=== PATIENT | female | born 1985 | race Caucasian/White ===

== ENCOUNTER 2017-12-26 09:31 | Emergency (ER) | payer OTHER ==
[~2017-12-26] VITALS: Ht 160 cm; Wt 83.5 kg
[2017-12-26 10:18] LABS: BILIRUBIN,URINE NEGATIVE (NEGATIVE); CLARITY,URINE CLEAR (CLEAR); COLOR,URINE YELLOW (YELLOW); KETONES,URINE NEGATIVE (NEGATIVE); LEUKOCYTE ESTERASE ,URINE NEGATIVE (NEGATIVE); NITRITE,URINE NEGATIVE (NEGATIVE); PROTEIN,URINE DIPSTICK NEGATIVE (NEGATIVE); URINE UROBILINOGEN 0.2 mg/dL (0.2 - 1)
[2017-12-26 10:19] LABS: PREGNANCY TEST, URINE NEGATIVE (NEGATIVE)
[2017-12-26 10:22] LABS: BACTERIA,URINE FEW /HPF; EPITHELIAL CELLS,URINE MODERATE /LPF; RBC,URINE 0-5 /HPF (0-5); WBC,URINE (MAN) 0-5 /HPF (0-5)
[2017-12-26 11:14] VITALS: BP 121/73
--- NOTE | 2017-12-26 11:15 | Diagnostic Imaging Report ---
Pelvis CPT code: 61536 Indication: Fall Technique: AP view of the pelvis obtained. Findings: No abnormalities of the pubic symphysis or sacroiliac joints. No evidence of fracture, dislocation, or focal osseous lesion. Intrauterine device is present just to the right of midline. Visualized bowel gas pattern is unremarkable. IMPRESSION: No acute traumatic pathology. Signed by: Dr. Madina Niño MD on 12/26/2017 11:12 AM
--- NOTE | 2017-12-26 11:17 | Diagnostic Imaging Report ---
Lumbar spine two views CPT code: 55662 Indication: Fall Technique: A.P. and lateral views of the lumbar spine obtained without comparison. Findings: There are five non rib bearing vertebral bodies. Alignment is maintained on the AP. The transverse processes are intact. The vertebral body heights are well maintained. There is anterolisthesis of L5 on S1 of approximately 5 mm. There is no significant joint space narrowing or endplate sclerosis or osteophyte formation. Bilateral pars defects are present. No abnormalities of the sacroiliac joints. The sacrum is normal. The bowel gas pattern is unremarkable. Clips in the right upper quadrant are suggestive of cholecystectomy. IMPRESSION: 1. No acute traumatic pathology. 2. Spondylolisthesis of L5 on S1 with bilateral spondylolyses. Signed by: Dr. Madina Niño MD on 12/26/2017 11:14 AM
== END 2017-12-26 11:26 | disposition home or self-care (01) ==
LOC: ER 09:31
DX: M54.5 Low back pain (principal); S33.5XXA Sprain of ligaments of lumbar spine, initial encounter; W18.39XA Other fall on same level, initial encounter; Y92.008 Other place in unspecified non-institutional (private) residence as the place of occurrence of the external cause
CPT/HCPCS: 72100; 72170; 81001; 81025; 99283